=== PATIENT | male | born 2000 | race Hispanic/Latino ===

== ENCOUNTER 2020-09-30 23:48 | Emergency (ER) | payer OTHER, SELFPAY ==
--- OUTSIDE RECORDS SUMMARY | 2020-09-30 23:50 | XMS REPORT | Continuity of Care Document ---
:2000 Author Organization [facility] t Address [address] [place] [address] Dr. Armando [address] [place] [id number] Care Team Providers Name Role Phone Unavailable Unavailable Unavailable Problems This patient has no known problems. Allergies, Adverse Reactions, Alerts This patient has no known allergies or adverse reactions. Medications This patient has no known medications. Procedures This patient has no known procedures. Results This patient has no known results.
[2020-10-01 05:36] LABS: Absolute Lymphocytes (CBC) 2.4 K/uL (0.7-4.9); Basophils % 0.5 % (0-1.3); Hematocrit 39.3 % (39.6-49.0); Lymphocytes % 45.3 % (15.3-44.8); MPV 10.5 fL (7.6-11.3); RBC Red Blood Cell Count 4.51 M/uL (4.33-5.43)
[2020-10-01 05:43] LABS: Protime INR 1.04
[2020-10-01 05:59] LABS: ALT/SGPT 31 U/L (12-78); AST/SGOT 15 U/L (15-37); Albumin 4.4 g/dL (3.4-5.0); Alkaline Phosphatase 77 U/L (45-117); BUN Blood Urea Nitrogen 14 mg/dL (7-18); Bicarbonate 29 mmol/L (21-32); Bilirubin Direct 0.2 mg/dL (0-0.2); Bilirubin Total 0.7 mg/dL (0.2-1.0); Glucose Level 78 mg/dL (74-106); Potassium 3.4 mmol/L (3.5-5.1); Protein, Total 7.9 g/dL (6.4-8.2); Sodium Level 138 mmol/L (136-145)
[2020-10-01 07:10] LABS: Blood Morphology Comment NOT SEEN (NOT SEEN); Platelet Estimate ADEQ
[2020-10-01 07:57] LABS: Urine Blood Negative (Negative); Urine Glucose Negative (Negative); Urine Protein Negative (Negative); Urine Specific Gravity 1.025 (1.005-1.030)
[2020-10-01 08:13] LABS: Barbiturates NEGATIVE (NEGATIVE); Benzodiazepines NEGATIVE (NEGATIVE); Cocaine NEGATIVE (NEGATIVE); METHAMPHETAM NEGATIVE (NEGATIVE); Methadone NEGATIVE (NEGATIVE); Opiates NEGATIVE (NEGATIVE); Phencyclidine NEGATIVE (NEGATIVE); THC Cannibis NEGATIVE (NEGATIVE)
--- NOTE | 2020-10-01 08:20 | ER ---
Nurse's Notes [facility] Name: Greg Taveras Age: 20 yrs Sex: Male : 2000 Arrival Date: 09/30/2020 Time: 23:52 Bed 12 Private MD: Diagnosis: Bipolar disorder, unspecified;Suicidal ideations;Adjustment disorder with depressed mood;Coronavirus infection, unspecified Presentation: 10/01 00:53 Chief complaint: Patient states: Pt states he has been having a rough time lately. Pt wg states he has a hx of SI and depression. States he frequently has thoughts of SI but hasn't escalated to the point of having a plan. Denies any specific triggers, denies taking any prescribed or recreational medication. States social drinker. States been trying to get into [facility] but they have been busy. Coronavirus screen: Client denies travel out of the [place] in the last 14 days. At this time, the client does not indicate any symptoms associated with coronavirus-19. The client denies any previous COVID testing. Ebola Screen: Patient negative for fever greater than or equal to 101.5 degrees Fahrenheit, and additional compatible Ebola Virus Disease symptoms Patient denies exposure to infectious person. Patient denies travel to an Ebola-affected area in the 21 days before illness onset. No symptoms or risks identified at this time. 00:53 Method Of Arrival: Ambulatory wg 00:58 Initial Sepsis Screen: Does the patient meet any 2 criteria? No. Patient's initial wg sepsis screen is negative. Does the patient have a suspected source of infection? No. Patient's initial sepsis screen is negative. Risk Assessment: Do you want to hurt yourself or someone else? Patient reports desire/thoughts of hurting themselves or someone else. Provider notified. Onset of symptoms was September 30, 2020. Care prior to arrival: None. Activity prior to arrival: None. Mechanism of Injury: No Mechanism of Injury. Transition of care: patient was not received from another setting of care. 00:58 Acuity: GLADYS 2 wg 01:02 Note Pt denies homicidal thoughts and states he feels like harming self but has no wg current intention or plan. Other than stated complaint, pt is calm, cooperative and acting appropriately, listening to music. Triage Assessment: 00:59 General: Appears in no apparent distress. comfortable, Behavior is calm, cooperative, wg appropriate for age. Pain: Denies pain. EENT: No signs and/or symptoms were reported regarding the EENT system. Neuro: No deficits noted. Cardiovascular: No deficits noted. Respiratory: No deficits noted. GI: No deficits noted. : No deficits noted. Derm: No deficits noted. Musculoskeletal: No deficits noted. Historical: - Allergies: 00:59 No Known Drug Allergies; wg - PMHx: 00:59 ADD/ADHD; GERD; Anxiety; Depressive disorder; wg - Immunization history:: Adult Immunizations. - Social history:: Smoking status: Patient denies any tobacco usage or history of. Patient uses alcohol, only on a social basis. Patient/guardian denies using street drugs, IV drugs, tobacco products, The patient lives with family, No barriers to communication noted, The patient attends The patient works The patient is unemployed. - Family history:: not pertinent. - Code Status:: Full code. - Coronavirus screen:: The patient has NOT traveled to [place] in the past 14 days. The patient has NOT had contact with known/suspected case of Coronavirus?. - Ebola Screening: : Patient negative for fever greater than or equal to 101.5 degrees Fahrenheit, and additional compatible Ebola Virus Disease symptoms Patient denies exposure to infectious person Patient denies travel to an Ebola-affected area in the 21 days before illness onset No symptoms or risks identified at this time. Screenin:33 Abuse screen: Denies threats or abuse. Denies injuries from another. Nutritional sh9 screening: No deficits noted. Tuberculosis screening: No symptoms or risk factors identified. Fall Risk None identified. Assessment: 05:32 General: Appears in no apparent distress. well groomed, Behavior is calm, cooperative. sh9 Pain: Denies pain. Neuro: No deficits noted. Cardiovascular: No deficits noted. Respiratory: No deficits noted. GI: No deficits noted. : No deficits noted. EENT: No deficits noted. Derm: No deficits noted. Musculoskeletal: No deficits noted. 07:00 Reassessment: Patient appears in no apparent distress at this time. Patient and/or jl7 family updated on plan of care and expected duration. Pain level reassessed. Patient is alert, oriented x 3, equal unlabored respirations, skin warm/dry/pink. Patient denies pain at this time. 07:45 Reassessment: Pt denies SI, states "I slept and had time to cool down." ERD notified. jl7 Psych: 05:33 [place] Suicide Severity Screening: In the past month, have you wished you were sh9 or wished you could go to sleep and not wake up? Patient responds "yes." "In the past month, have you actually had any thoughts of killing yourself?" Patient responds "yes." "In your lifetime, have you ever done anything, started to do anything, or prepared to do anything to end your life?" Patient responds "yes.". Subjective: Patient's mood is sad, Delusions are denied, Hallucinations are denied Having thoughts of suicide. Plan for suicide is to cut wrists. Objective: Patient is cooperative, Speech is normal, Affect is appropriate, Patient has mutilated themselves by cutting wrists. Interventions: Removed personal items and placed in bag. Patient placed in hospital gown. Belonging list filled out. Safety Checks: Personal items have been removed. Door is open. No visitors are present at this time. Pt denies substance abuse. Commitment: Patient will be a voluntary commitment. Vital Signs: 00:53 BP 116 / 64 (/reg); Pulse 62; Resp 18; Temp 98.1; Pulse Ox 100% on R/A; Weight 74.84 wg kg; Height 5 ft. 6 in. (167.64 cm); Pain 0/10; 05:32 BP 117 / 72; Pulse 51; Resp 18; Pulse Ox 100% on R/A; sh9 07:45 BP 100 / 61; Pulse 68; Resp 15; Temp 97.3; Pulse Ox 100% ; Pain 0/10; jl7 00:53 Body Mass Index 26.63 (74.84 kg, 167.64 cm) ED Course: 09/30 23:52 Patient arrived in ED. mr 10/01 00:23 [facility] called and stated that they have screened the pt and had the pt come in, tt3 that they were in route to another screening and afterwards they would fax over the screening results as soon as they could. 00:59 Triage completed. wg 00:59 Arm band placed on right wrist. wg 04:59 Simeon Fountain MD is Attending Physician. pkl 05:08 Kala Jaime, DANIELLE is Primary Nurse. sh9 05:33 No apparent distress. Safety Checks: Personal items have been removed. The door is open 9 or patient has been placed in a hallway bed/chair. 05:33 No provider procedures requiring assistance completed. [facility] 05:35 Patient has correct armband on for positive identification. Side rails up X2. 9 06:18 CBC with Diff Sent. 9 06:19 Manual Differential Sent. 9 07:45 Urine collected: clean catch specimen, clear. [facility] 07:56 Attending Physician role handed off by Simeon Fountain MD [facility] 07:56 Myles Umanzor MD is Attending Physician. [facility] 08:18 Baldo Kay MD is Referral Physician. [facility] 08:18 Kofi Hickey MD is Referral Physician. [facility] 09:39 IV discontinued, intact, bleeding controlled, No redness/swelling at site. Pressure jl7 dressing applied. Administered Medications: No medications were administered Outcome: 08:19 Discharge ordered by MD. [facility] 09:39 Discharged to home ambulatory. 7 09:39 Condition: stable 09:39 Discharge instructions given to patient, Instructed on discharge instructions, follow up and referral plans. Demonstrated understanding of instructions, follow-up care. 09:45 Patient left the ED. 7 Signatures: Myles Umanzor MD MD cha Lam, Pin, MD MD pkl Rivera, Mary mr Leal, Jahala, RN RN jl7 Jabier Post Skylar, RN RN sh9 Herber Neville Corrections: (The following items were deleted from the chart) 01:01 00:59 PMHx: Anxiety; [facility] 07:59 05:35 Discharged to [facility] jl7
--- NOTE | 2020-10-01 08:20 | EDPHYS ---
Physician Documentation [facility] Name: Greg Taveras Age: 20 yrs Sex: Male : 2000 Arrival Date: 09/30/2020 Time: 23:52 Bed 12 Private MD: ED Physician Myles Umanzor HPI: 10/01 05:13 This 20 yrs old Male presents to ER via Ambulatory with complaints of Suicidal pkl Ideation. 05:13 The patient presents to the emergency department with depression, over unknown pkl circumstances. Onset: The symptoms/episode began/occurred yesterday. Patient said he talked to [facility] screener laurence and was told to come to ER and arrange for transfer to Psychiatric facility. Historical: - Allergies: 00:59 No Known Drug Allergies; wg - PMHx: 00:59 ADD/ADHD; GERD; Anxiety; Depressive disorder; wg - Immunization history:: Adult Immunizations. - Social history:: Smoking status: Patient denies any tobacco usage or history of. Patient uses alcohol, only on a social basis. Patient/guardian denies using street drugs, IV drugs, tobacco products, The patient lives with family, No barriers to communication noted, The patient attends The patient works The patient is unemployed. - Family history:: not pertinent. - Code Status:: Full code. - Coronavirus screen:: The patient has NOT traveled to [place] in the past 14 days. The patient has NOT had contact with known/suspected case of Coronavirus?. - Ebola Screening: : Patient negative for fever greater than or equal to 101.5 degrees Fahrenheit, and additional compatible Ebola Virus Disease symptoms Patient denies exposure to infectious person Patient denies travel to an Ebola-affected area in the 21 days before illness onset No symptoms or risks identified at this time. ROS: 05:13 Eyes: Negative for injury, pain, redness, and discharge, ENT: Negative for injury, pkl pain, and discharge, Neck: Negative for injury, pain, and swelling, Cardiovascular: Negative for chest pain, palpitations, and edema, Respiratory: Negative for shortness of breath, cough, wheezing, and pleuritic chest pain, Abdomen/GI: Negative for abdominal pain, nausea, vomiting, diarrhea, and constipation, Back: Negative for injury and pain, : Negative for injury, bleeding, discharge, and swelling, MS/Extremity: Negative for injury and deformity, Skin: Negative for injury, rash, and discoloration, Neuro: Negative for headache, weakness, numbness, tingling, and seizure. 05:13 Psych: Positive for depression, suicidal ideation. Exam: 05:13 Head/Face: Normocephalic, atraumatic. Eyes: Pupils equal round and reactive to light, pkl extra-ocular motions intact. Lids and lashes normal. Conjunctiva and sclera are non-icteric and not injected. Cornea within normal limits. Periorbital areas with no swelling, redness, or edema. ENT: Nares patent. No nasal discharge, no septal abnormalities noted. Tympanic membranes are normal and external auditory canals are clear. Oropharynx with no redness, swelling, or masses, exudates, or evidence of obstruction, uvula midline. Mucous membranes moist. Neck: Trachea midline, no thyromegaly or masses palpated, and no cervical lymphadenopathy. Supple, full range of motion without nuchal rigidity, or vertebral point tenderness. No Meningismus. Chest/axilla: Normal chest wall appearance and motion. Nontender with no deformity. No lesions are appreciated. Cardiovascular: Regular rate and rhythm with a normal S1 and S2. No gallops, murmurs, or rubs. Normal PMI, no JVD. No pulse deficits. Respiratory: Lungs have equal breath sounds bilaterally, clear to auscultation and percussion. No rales, rhonchi or wheezes noted. No increased work of breathing, no retractions or nasal flaring. Abdomen/GI: Soft, non-tender, with normal bowel sounds. No distension or tympany. No guarding or rebound. No evidence of tenderness throughout. Back: No spinal tenderness. No costovertebral tenderness. Full range of motion. Skin: Warm, dry with normal turgor. Normal color with no rashes, no lesions, and no evidence of cellulitis. MS/ Extremity: Pulses equal, no cyanosis. Neurovascular intact. Full, normal range of motion. Neuro: Awake and alert, GCS 15, oriented to person, place, time, and situation. Cranial nerves II-XII grossly intact. Motor strength 5/5 in all extremities. Sensory grossly intact. Cerebellar exam normal. Normal gait. 05:13 Psych: Behavior/mood is cooperative, Affect is flat, Patient having thoughts of suicide. Denies suicidal plan. Judgement / Insight is impaired. 08:20 ECG was reviewed by the Attending Physician. [facility] Vital Signs: 00:53 BP 116 / 64 (/reg); Pulse 62; Resp 18; Temp 98.1; Pulse Ox 100% on R/A; Weight 74.84 wg kg; Height 5 ft. 6 in. (167.64 cm); Pain 0/10; 05:32 BP 117 / 72; Pulse 51; Resp 18; Pulse Ox 100% on R/A; sh9 07:45 BP 100 / 61; Pulse 68; Resp 15; Temp 97.3; Pulse Ox 100% ; Pain 0/10; jl7 00:53 Body Mass Index 26.63 (74.84 kg, 167.64 cm) wg MDM: 04:59 Patient medically screened. pkl 08:16 Differential diagnosis: drug withdrawal. acute psychotic break, depression. Data jayro reviewed: vital signs, nurses notes, lab test result(s), CBC, electrolytes, hepatic panel. Data interpreted: monitoring engineer: rate is 46 beats/min, rhythm is regular, Pulse oximetry: on room air is 100 %. Test interpretation: by ED physician or midlevel provider: ECG. Counseling: I had a detailed discussion with the patient and/or guardian regarding: the historical points, exam findings, and any diagnostic results supporting the discharge/admit diagnosis, lab results, radiology results, the need for outpatient follow up, for definitive care, a family practitioner, a psychiatrist, a thermometer tester. 08:17 ED course: not suicidal, not homicidal, want to follow up good plan and family support. [facility] 10/01 05:10 Order name: Acetaminophen; Complete Time: 08:16 pkl 10/01 05:10 Order name: Basic Metabolic Panel; Complete Time: 08:16 pkl 10/01 05:10 Order name: CBC with Diff; Complete Time: 08:16 pkl 10/01 05:10 Order name: ETOH Level; Complete Time: 08: pkl 10/01 05:10 Order name: Hepatic Function; Complete Time: 08:16 pkl 10/01 05:10 Order name: PT-INR; Complete Time: 08:16 pkl 10/01 05:10 Order name: Ptt, Activated; Complete Time: 08: pkl 10/01 05:10 Order name: Salicylate; Complete Time: 08:16 pkl 10/01 05:10 Order name: Urine Drug Screen; Complete Time: 08:16 pkl 10/01 05:10 Order name: EKG; Complete Time: 05:11 pkl 10/01 05:46 Order name: Manual Differential; Complete Time: 08:16 EDMS 10/01 07:12 Order name: SARS-COV-2 RT PCR; Complete Time: 08:16 EDMS 10/01 07:57 Order name: Urine Dipstick-Ancillary; Complete Time: 08:16 EDMS 10/01 05:10 Order name: EKG - Nurse/Tech; Complete Time: 06:18 pkl 10/01 05:10 Order name: IV Saline Lock; Complete Time: 05:18 pkl 10/01 05:10 Order name: Labs collected and sent; Complete Time: 05:18 pkl 10/01 05:10 Order name: Suicide Screening (Orient); Complete Time: 06:18 pkl 10/01 05:10 Order name: Urine Dipstick-Ancillary (obtain specimen); Complete Time: 07:58 pkl EC:20 Rate is 68 beats/min. Rhythm is regular. QRS [place] is Normal. [place] interval is normal. QRS jayro interval is normal. QT interval is normal. No Q waves. T waves are Normal. No ST changes noted. Clinical impression: Sinus bradycardia and No evidence of ischemia. Interpreted by me. Reviewed by me. Administered Medications: No medications were administered Disposition Summary: 10/01/20 08:19 Discharge Ordered Location: Home jayro Problem: new jayro Symptoms: have improved jayro Condition: Stable jayro Diagnosis - Bipolar disorder, unspecified jayro - Suicidal ideations jayro - Adjustment disorder with depressed mood jayro - Coronavirus infection, unspecified jayro Followup: jayro - With: Private Physician - When: 2 - 3 days - Reason: Recheck today's complaints, Continuance of care, Re-evaluation by your physician Followup: jayro - With: Baldo Kay MD - When: 2 - 3 days - Reason: Recheck today's complaints, Re-evaluation by your physician Followup: jayro - With: Kofi Hickey MD - When: 2 - 3 days - Reason: Recheck today's complaints, Re-evaluation by your physician Discharge Instructions: - Discharge Summary Sheet jayro - Suicidal Feelings: How to Help Yourself jayro - Helping Someone Who is Suicidal jayro - Stress, Adult jayro - COVID-19 jayro - COVID-19 Frequently Asked Questions jayro - Mixed Bipolar Disorder jayro - COVID-19: Quarantine vs. Isolation - [facility] jayro Forms: - Medication Reconciliation Form jayro - Thank You Letter jayro - Antibiotic Education jayro - Prescription Opioid Use jayro Signatures: Dispatcher [employer] EDMS Myles Umanzor MD MD cha Lam, Pin, MD MD pkl Gamba, Williams wg Corrections: (The following items were deleted from the chart) 01:01 00:59 PMHx: Anxiety; wg wg 05:45 05:33 CORONAVIRUS+MR.LAB.BRZ ordered. EDMS EDMS
[2020-10-01 09:51] VITALS: O2SAT 100
[2020-10-01 09:54] VITALS: BP 100/61; TEMP 97.3
== END 2020-10-01 09:45 | disposition home or self-care (01) ==
LOC: ER 23:48
DX: U07.1 COVID-19 (principal); F43.21 Adjustment disorder with depressed mood; F31.9 Bipolar disorder, unspecified
CPT/HCPCS: 36415; 80048; 80076; 80307; 80320; 80329; 81003; 85025; 85610; 85730; 93005; 99284; U0003